=== PATIENT | male | born 1995 | race Hispanic/Latino ===

== ENCOUNTER 2021-02-28 02:08 | Emergency (ER) | payer OTHER ==
--- OUTSIDE RECORDS SUMMARY | 2021-02-28 02:11 | XMS REPORT | Continuity of Care Document ---
:1995 Author Organization [facility] t Address [address] [place] [address] Care Team Providers Name Role Phone Bhargavi WILL Attending Clinician Problems This patient has no known problems. Allergies, Adverse Reactions, Alerts This patient has no known allergies or adverse reactions. Medications This patient has no known medications. Procedures This patient has no known procedures. Encounters Start End Encounter Admission Attending Care Care Encounter Source Date/Time Date/Time Type Type Clinicians Facility Department ID 2019-03-25 2019-03-25 Hospital [facility] [id number] 13:45:00 23:59:00 Encounter Jessica [place] [id number] [place] [id number] [place] [id number] 2019-03-25 2019-03-25 Office [facility] [id number] 12:42:42 13:25:13 Visit Jessica [facility] [id number] [place] [id number] [facility] [phone] [place] 044 Office [address] One Results This patient has no known results.
[2021-02-28] MEDS ORDERED: ONDANSETRON 4 MG (ODT) TAB ONE (03:11)
--- NOTE | 2021-02-28 04:05 | ER ---
Nurse's Notes [facility] Name: Jorge Hidalgo Age: 25 yrs Sex: Male : 1995 Arrival Date: 02/28/2021 Time: 02:12 Bed Waiting Private MD: Diagnosis: SARS-associated coronavirus as the cause of diseases classified elsewhere;Syncope Near Presentation: 02/28 03:16 Chief complaint: Patient states: covid for 9 days, reports dizziness, can't break the em fever, reports syncope. Coronavirus screen: Client denies travel out of the [place] in the last 14 days. Ebola Screen: Patient negative for fever greater than or equal to 101.5 degrees Fahrenheit, and additional compatible Ebola Virus Disease symptoms Patient denies exposure to infectious person. Patient denies travel to an Ebola-affected area in the 21 days before illness onset. No symptoms or risks identified at this time. Initial Sepsis Screen: Does the patient meet any 2 criteria? No. Patient's initial sepsis screen is negative. Does the patient have a suspected source of infection? No. Patient's initial sepsis screen is negative. Risk Assessment: Do you want to hurt yourself or someone else? Patient reports no desire to harm self or others. Onset of symptoms was February 28, 2021. 03:16 Method Of Arrival: Ambulatory em 03:16 Acuity: ROEL 3 em Historical: - Allergies: 03:20 PENICILLINS; em - PMHx: 03:20 None; em - PSHx: 03:20 None; em - Immunization history:: Adult Immunizations unknown. - Social history:: Smoking status: unknown. Screenin:20 Abuse screen: Denies threats or abuse. Nutritional screening: No deficits noted. em Tuberculosis screening: No symptoms or risk factors identified. Fall Risk None identified. Assessment: 03:30 General: Appears in no apparent distress. comfortable, Behavior is calm, cooperative, em appropriate for age, Denies fever. Pain: Denies pain. Neuro: Level of Consciousness is awake, alert, obeys commands, Oriented to person, place, time, situation, Reports a syncopal episode. Cardiovascular: Capillary refill < 3 seconds Patient's skin is warm and dry. Respiratory: Airway is patent Respiratory effort is even, unlabored, Respiratory pattern is regular, symmetrical. Derm: Skin is intact, is healthy with good turgor, Skin is pink, warm \T\ dry. Musculoskeletal: Capillary refill < 3 seconds, Range of motion: intact in all extremities. 04:10 Reassessment: tolerated PO challenge. em Vital Signs: 03:16 BP 113 / 54; Pulse 78; Resp 20; Temp 99.2; Pulse Ox 99% on R/A; em ED Course: 02:12 Patient arrived in ED. 02:36 Pio Hernandez is Attending Physician. sp3 03:16 Shaq Garcia, RN is Primary Nurse. em 03:20 Triage completed. em 03:20 Patient has correct armband on for positive identification. em 03:20 No provider procedures requiring assistance completed. em 04:18 Patient did not have IV access during this emergency room visit. em Administered Medications: 03:20 Drug: Ondansetron 4 mg Route: PO; em 04:20 Follow up: Response: No adverse reaction; Marked relief of symptoms; Nausea is decreasedem Outcome: 04:04 Discharge ordered by MD. sp3 04:18 Discharged to home ambulatory, with family. em 04:18 Condition: good 04:18 Discharge instructions given to patient, Instructed on discharge instructions, follow up and referral plans. medication usage, Demonstrated understanding of instructions, follow-up care, medications, Prescriptions given X 1. 04:20 Patient left the ED. em Signatures: Shaq Garcia, RN RN Shelly Thorpe Pio Hernandez sp3
--- NOTE | 2021-02-28 04:05 | EDPHYS ---
Physician Documentation [facility] Name: Jorge Hidalgo Age: 25 yrs Sex: Male : 1995 Arrival Date: 02/28/2021 Time: 02:12 Bed Waiting Private MD: ED Physician Pio Hernandez HPI: 02/28 03:04 This 25 yrs old Male presents to ER via Unassigned with complaints of sp3 Shortness Of Breath, Syncope - Before he came, + Covid. 03:04 25-year-old male with no significant past medical history presents with fever, syncope, sp3 fatigue and malaise who is also COVID-19 positive symptoms over 9 days ago. Patient's entire family is positive. Patient states that today after he was walking he became lightheaded and "passed out". No injuries reported from the syncope. Right now patient feels better and not like he is going to pass out. He is mildly nauseated but with no active emesis, shortness of breath, or any other symptoms. On ROS she denies headache, neck pain, shortness of breath, cough, chest pain, abdominal pain, nausea, vomiting, diarrhea, or any other significant ROS at this time.. Historical: - Allergies: 03:20 PENICILLINS; em - PMHx: 03:20 None; em - PSHx: 03:20 None; em - Immunization history:: Adult Immunizations unknown. - Social history:: Smoking status: unknown. ROS: 03:06 Eyes: Negative for injury, pain, redness, and discharge, ENT: Negative for injury, sp3 pain, and discharge, Neck: Negative for injury, pain, and swelling, Respiratory: Negative for shortness of breath, cough, wheezing, and pleuritic chest pain, Abdomen/GI: Negative for abdominal pain, nausea, vomiting, diarrhea, and constipation, Back: Negative for injury and pain, MS/Extremity: Negative for injury and deformity, Skin: Negative for injury, rash, and discoloration, Neuro: Negative for headache, weakness, numbness, tingling, and seizure, Psych: Negative for depression, anxiety, suicide ideation, homicidal ideation, and hallucinations, Allergy/Immunology: Negative for hives, rash, and allergies, Endocrine: Negative for neck swelling, polydipsia, polyuria, polyphagia, and marked weight changes, Hematologic/Lymphatic: Negative for swollen nodes, abnormal bleeding, and unusual bruising. 03:06 Constitutional: Positive for body aches, chills, fatigue, malaise. 03:06 Cardiovascular: Positive for Syncope. Exam: 03:09 Constitutional: This is a well developed, well nourished patient who is awake, alert, sp3 and in no acute distress. Head/Face: Normocephalic, atraumatic. Eyes: Pupils equal round and reactive to light, extra-ocular motions intact. Lids and lashes normal. Conjunctiva and sclera are non-icteric and not injected. Cornea within normal limits. Periorbital areas with no swelling, redness, or edema. ENT: Nares patent. No nasal discharge, no septal abnormalities noted. External auditory canals are clear. Oropharynx with no redness, swelling, or masses, exudates, or evidence of obstruction, uvula midline. Mucous membranes moist. Neck: Trachea midline, no thyromegaly or masses palpated, and no cervical lymphadenopathy. Supple, full range of motion without nuchal rigidity, or vertebral point tenderness. No Meningismus. Chest/axilla: Normal chest wall appearance and motion. Nontender with no deformity. No lesions are appreciated. Cardiovascular: Regular rate and rhythm with a normal S1 and S2. No gallops, murmurs, or rubs. Normal PMI, no JVD. No pulse deficits. Respiratory: Lungs have equal breath sounds bilaterally, clear to auscultation and percussion. No rales, rhonchi or wheezes noted. No increased work of breathing, no retractions or nasal flaring. Abdomen/GI: Soft, non-tender, with normal bowel sounds. No distension or tympany. No guarding or rebound. No evidence of tenderness throughout. Back: No spinal tenderness. No costovertebral tenderness. Full range of motion. MS/ Extremity: Pulses equal, no cyanosis. Neurovascular intact. Full, normal range of motion. Neuro: Awake and alert, GCS 15, oriented to person, place, time, and situation. Cranial nerves II-XII grossly intact. Motor strength 5/5 in all extremities. Sensory grossly intact. Cerebellar exam normal. Normal gait. Psych: Awake, alert, with orientation to person, place and time. Behavior, mood, and affect are within normal limits. Vital Signs: 03:16 BP 113 / 54; Pulse 78; Resp 20; Temp 99.2; Pulse Ox 99% on R/A; em MDM: 03:04 Data reviewed: vital signs, nurses notes. sp3 03:09 ED course: 25-year-old male with COVID-19 now on day 9. Patient states he had a sp3 syncopal episode. Currently he has normal vital signs and is in no acute distress. Syncope is likely vasovagal. Will administer Zofran 4 mg ODT and p.o. challenge patient. At this time I am not suspicious for cardiac event, sepsis, shock, ACS, PE, vascular compromise, or any other critical illness at this time. Likely DC if Zofran is helpful. Patient has not been vaccinated. Patient is okay with the plan and has no questions moving forward.. 04:03 ED course: Patient is improved with Zofran. Had extensive conversation with patient sp3 regarding signs and symptoms of Covid and when to return and what to look for for worsening symptoms. Patient has no further questions and was appreciative for the conversation. Will discharge patient on Zofran and recommend bedrest until his symptoms improve. Patient continues to be able to tolerate p.o. and has positive urine output.. 04:04 Patient medically screened. sp3 02/28 02:58 Order name: PO challenge; Complete Time: 04:20 sp3 Administered Medications: 03:20 Drug: Ondansetron 4 mg Route: PO; em 04:20 Follow up: Response: No adverse reaction; Marked relief of symptoms; Nausea is decreasedem Disposition Summary: 02/28/21 04:04 Discharge Ordered Location: Home sp3 Condition: Stable sp3 Diagnosis - SARS-associated coronavirus as the cause of diseases classified elsewhere sp3 - Syncope Near sp3 Discharge Instructions: - Discharge Summary Sheet sp3 - Near-Syncope sp3 - COVID-19 sp3 - Things to Know about the COVID-19 Pandemic - [facility] sp3 - 10 Things You Can Do to Manage Your COVID-19 Symptoms at Home - [facility] sp3 Forms: - Medication Reconciliation Form sp3 - Thank You Letter sp3 - Antibiotic Education sp3 - Prescription Opioid Use sp3 Prescriptions: - Zofran 4 mg Oral Tablet - take 1 tablet by ORAL route every 12 hours As needed; 20 tablet; Refills: 0, sp3 Product Selection Permitted Signatures: Dispatcher [employer] Shaq Cruz, RN RN Pio Barrera sp3 Corrections: (The following items were deleted from the chart) 04:08 02:28 CORONAVIRUS+ ordered. RAFFY AKBAR
[2021-02-28 04:26] VITALS: BP 113/54; TEMP 99.2; O2SAT 99
== END 2021-02-28 04:20 | disposition home or self-care (01) ==
LOC: ER 02:08
DX: U07.1 COVID-19 (principal); Z88.0 Allergy status to penicillin
CPT/HCPCS: 99283; U0003